=== PATIENT | female | born 2000 | race American Indian/Alaskan Native ===

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

== ENCOUNTER 2020-12-19 10:33 | Emergency (ER) | payer MEDICAID, OTHER ==
[2020-12-19 11:18] VITALS: BP 119/86
[2020-12-19] MEDS ORDERED: HYDROcodone/ACETAMINOPHEN 5-325 MG TAB PO ONE (11:40)
[2020-12-19] MEDS ORDERED: IBUPROFEN 800 MG TAB PO ONE (11:40)
--- NOTE | 2020-12-19 11:46 | Emergency Department Report ---
ED Female HPI - General Chief complaint: Vaginal Bleeding Stated complaint: ABD PAIN/MISCARRIAGE Time Seen by Provider: 12/19/20 11:33 Source: patient Mode of arrival: Stretcher Limitations: No Limitations - History of Present Illness Initial comments: Chief complaint: "bleeding, severe pain" HPI: This is a 20-year-old female G2, P1 approximately 8 weeks according to LMP who presents with severe pelvic pain and vaginal bleeding. She was evaluated at [facility] recently. Ultrasound revealed that fetus only measured to be approximately 6 weeks of age. Due to the discrepancy, demise or spontaneous miscarriage were probable diagnoses. She was advised to follow-up December 28 for further treatment recommendations. Patient had vaginal spotting for the past several days. Today she had severe vaginal bleeding with severe pelvic pain. Pain was 10 out of 10. After Tylenol it is now 7 out of 10. Pain radiates to the back buttock region. She has mild "tension" headache. She denies fever, cough, shortness of breath, vomiting. She denies known COVID-19 exposure. She lives with her boyfriend and 3-year-old son. She works from home. MD Complaint: vaginal bleeding, pelvic pain -: Gradual, This morning Severity: severe Severity scale (0 -10): 10 Quality: cramping Consistency: constant Improves with: medication (Tylenol improved pain slightly) Are you Now?: Yes Associated Symptoms: vaginal bleeding - Related Data Previous Rx's Medication Instructions Recorded Last Taken Type Docusate Sodium [Colace] 100 mg PO BID PRN #60 capsule 10/12/17 Unknown Rx Ibuprofen [Ibuprofen 800] 800 mg PO Q6HR #30 tablet 10/12/17 Unknown Rx Lidocain2.5%/Prilocai2.5% [Emla] 2 gm TP ONCE #1 tube 10/12/17 Unknown Rx oxyCODONE /ACETAMINOPHEN [Percocet 1 tab PO Q4HR #30 tab 10/12/17 Unknown Rx 5/325] Allergies Allergy/AdvReac Type Severity Reaction Status Date / Time No Known Allergies Allergy Unverified 10/12/17 19:44 ED Review of Systems ROS: Stated complaint: ABD PAIN/MISCARRIAGE Other details as noted in HPI Comment: All other systems reviewed and negative Constitutional: denies: chills, fever, malaise Respiratory: denies: cough, shortness of breath Cardiovascular: denies: chest pain Gastrointestinal: denies: abdominal pain, nausea, vomiting, diarrhea Neurological: headache ED Past Medical Hx - Past Medical History Previous Medical History?: Yes Hx Hypertension: No Hx Congestive Heart Failure: No Hx Diabetes: No Hx Deep Vein Thrombosis: No Hx Renal Disease: No Hx Sickle Cell Disease: Yes (trait) Hx Seizures: No Hx Asthma: No Hx COPD: No Hx HIV: No - Surgical History Past Surgical History?: Yes Additional Surgical History: - Family History Family history: diabetes, hypertension - Social History Smoking Status: Never Smoker Substance Use Type: Marijuana - Medications Home Medications: Home Medications Medication Instructions Recorded Confirmed Last Taken Type Docusate Sodium [Colace] 100 mg PO BID PRN #60 capsule 10/12/17 Unknown Rx Ibuprofen [Ibuprofen 800] 800 mg PO Q6HR #30 tablet 10/12/17 Unknown Rx Lidocain2.5%/Prilocai2.5% [Emla] 2 gm TP ONCE #1 tube 10/12/17 Unknown Rx oxyCODONE /ACETAMINOPHEN [Percocet 1 tab PO Q4HR #30 tab 10/12/17 Unknown Rx 5/325] ED Physical Exam - General Limitations: No Limitations General appearance: alert, in no apparent distress - Head Head exam: Present: atraumatic, normocephalic - Eye Eye exam: Present: normal appearance - ENT ENT exam: Present: mucous membranes moist - Neck Neck exam: Present: normal inspection, full ROM - Respiratory Respiratory exam: Present: normal lung sounds bilaterally. Absent: respiratory distress, wheezes, rales, rhonchi, stridor - Cardiovascular Cardiovascular Exam: Present: regular rate, normal rhythm, normal heart sounds. Absent: systolic murmur, diastolic murmur, rubs, gallop - GI/Abdominal GI/Abdominal exam: Present: soft, normal bowel sounds. Absent: distended, tenderness, guarding, rebound - Extremities Exam Extremities exam: Present: normal inspection - Neurological Exam Neurological exam: Present: alert, oriented X3 - Psychiatric Psychiatric exam: Present: normal affect, normal mood - Skin Skin exam: Present: warm, dry, intact, normal color. Absent: rash ED Course Vital Signs 12/19/20 11:17 Temperature 98.2 F Pulse Rate 85 Respiratory 16 Rate Blood Pressure 119/86 [Right] O2 Sat by Pulse 98 Oximetry ED Medical Decision Making - Lab Data Result diagrams: 12/19/20 11:55 12/19/20 11:55 - Radiology Data Radiology results: report reviewed Patient Name: AYDEN TELLES Gender: Female Date of : 2000 Referring Provider: RUEL GARCIA Organization: [facility] Accession Number: [id number] Requested Date: December 19, 2020 11:34 Report Status: Final Requested Procedure: 1 Procedure Description: US OB transvaginal Modality: US Findings Reporting MD: Yoan Nicole Dictation Time: December 19, 2020 11:54 Patient Relations Coordinator: Not available Nurse Auditor Date: ULTRASOUND OBSTETRIC INDICATION: Pelvic pain, vaginal bleeding, spontaneous miscarriage. TECHNIQUE: Transabdominal and Transvaginal. COMPARISON: None available. FINDINGS: GESTATIONAL SAC: None seen. YOLK SAC: Not seen. EMBRYO/FETUS: None seen. ADNEXA: There is a 1.6 cm dominant follicle in the left ovary. No other significant abnormalities. FREE FLUID: None. ADDITIONAL FINDINGS: Heterogeneous material along the lower uterine segment is favored to represent blood products in the setting of vaginal bleeding and miscarriage. A small amount of fluid is noted along the cervix. IMPRESSION: 1. No sonographic visualization of an intrauterine or ectopic . 2. Findings compatible with the provided history of miscarriage. Close clinical and imaging follow up is recommended. Signer Name: Yoan Nicole MD Signed: 12/19/2020 11:54 AM Workstation Name: [id number] - Medical Decision Making Spontaneous miscarriage: No IUP on ultrasound. Patient will follow up with her primary patcher bowling ball. CBC chemistry within normal limits hCG positively elevated, I do not suspect ectopic from his presentation. RH positive highly encourage patient to keep next appointment with [facility] December 28 Critical care attestation.: If time is entered above; I have spent that time in minutes in the direct care of this critically ill patient, excluding procedure time. ED Disposition Clinical Impression: Spontaneous miscarriage Disposition: HOME / SELF CARE / HOMELESS Is pt being admited?: No Does the pt Need Aspirin: No Condition: Stable Instructions: Miscarriage, [id number] Referrals: [facility] [Provider Group] - 3-5 Days
[2020-12-19 12:38] LABS: Basophils % (Auto) 0.4 % (0.0-1.8); Eosinophils % (Auto) 0.4 % (0.0-4.3); Hematocrit 36.1 % (30.3-42.9); Hemoglobin 12.4 gm/dl (10.1-14.3); Lymphocytes # (Auto) 0.8 K/mm3 (1.2-5.4); Lymphocytes % (Auto) 8.7 % (13.4-35.0); Mean Corpuscular HGB Conc 34 % (30-34); Mean Corpuscular Volume 78 fl (79-97); Monocytes # (Auto) 0.4 K/mm3 (0.0-0.8); Monocytes % (Auto) 4.5 % (0.0-7.3); Platelet Count 228 K/mm3 (140-440); Red Blood Count 4.63 M/mm3 (3.65-5.03); Red Cell Distribution Width 16.9 % (13.2-15.2)
[2020-12-19 12:41] LABS: Blood Urea Nitrogen 11 mg/dL (7-17); Calcium 9.5 mg/dL (8.4-10.2); Hemolysis Index 2
[2020-12-19 12:47] LABS: BUN/Creatinine Ratio 18
--- NOTE | 2020-12-19 12:59 | Ultrasound Report ---
ULTRASOUND OBSTETRIC INDICATION: Pelvic pain, vaginal bleeding, spontaneous miscarriage. TECHNIQUE: Transabdominal and Transvaginal. COMPARISON: None available. FINDINGS: GESTATIONAL SAC: None seen. YOLK SAC: Not seen. EMBRYO/FETUS: None seen. ADNEXA: There is a 1.6 cm dominant follicle in the left ovary. No other significant abnormalities. FREE FLUID: None. ADDITIONAL FINDINGS: Heterogeneous material along the lower uterine segment is favored to represent b lood products in the setting of vaginal bleeding and miscarriage. A small amount of fluid is noted al tosha the cervix. IMPRESSION: 1. No sonographic visualization of an intrauterine or ectopic . 2. Findings compatible with the provided history of miscarriage. Close clinical and imaging follow up is recommended. Signer Name: Yoan Nicole MD Signed: 12/19/2020 12:54 PM Workstation Name: [id number]
== END 2020-12-19 14:39 | disposition home or self-care (01) ==
LOC: ED 10:33
DX: O03.9 Complete or unspecified spontaneous abortion without complication (principal); F12.90 Cannabis use, unspecified, uncomplicated
CPT/HCPCS: 36415; 76801; 76817; 80048; 84702; 85025; 86850; 86900; 86901; 99284